=== PATIENT | male | born 1995 | race Caucasian/White ===

== ENCOUNTER 2016-10-11 15:08 | Emergency (ER) | payer OTHER ==
[~2016-10-11] VITALS: Ht 182.9 cm; Wt 111.3 kg
[2016-10-11 15:15] VITALS: BP 140/62
[2016-10-11 16:43] LABS: microscopic required? NO
[2016-10-11 16:56] LABS: UA SPECIFIC GRAVITY 1.025 (1.005-1.035); urine erythrocyte NEGATIVE (NEGATIVE)
== END 2016-10-11 19:18 | disposition left against medical advice (07) ==
LOC: ED 15:08
DX: Z53.21 Procedure and treatment not carried out due to patient leaving prior to being seen by health care provider (principal)

== ENCOUNTER 2017-03-29 21:35 | Emergency (ER) | payer OTHER ==
[~2017-03-29] VITALS: Ht 180.3 cm; Wt 107.5 kg
[2017-03-29 23:54] LABS: CALCIUM 8.9 mg/dL (8.5-10.1); CARBON DIOXIDE 31.2 mmol/L (21-32); CHLORIDE SERUM 103 mmol/L (98-107); CREATININE SERUM 0.8 mg/dL (0.7-1.3); GFR1 > 60 mL/min; GLUCOSE SERUM 98 mg/dL (74-106); POTASSIUM SERUM 3.9 mmol/L (3.5-5.1); SODIUM SERUM 140 mmol/L (136-145)
[2017-03-29 23:58] LABS: AMPHETAMINE QUAL UR NONE DETECTED (NEG <=1000)
[2017-03-30 00:31] VITALS: BP 126/74
== END 2017-03-30 00:31 | disposition home or self-care (01) ==
LOC: ED 21:35
PROVIDERS: Emergency Medicine
DX: R20.2 Paresthesia of skin (principal); I10 Essential (primary) hypertension; F17.200 Nicotine dependence, unspecified, uncomplicated; Z71.6 Tobacco abuse counseling
CPT/HCPCS: 99406

== ENCOUNTER 2018-07-20 23:51 | Emergency (ER) | payer OTHER ==
[~2018-07-20] VITALS: Ht 180.3 cm; Wt 109.3 kg
[2018-07-21 00:16] VITALS: BP 133/82; Ht 180.3 cm; Wt 109.3 kg
== END 2018-07-21 01:41 | disposition home or self-care (01) ==
LOC: ED 23:51
DX: M54.41 Lumbago with sciatica, right side (principal); I10 Essential (primary) hypertension

== ENCOUNTER 2018-09-04 18:36 | Emergency (ER) | payer OTHER | END 2018-09-04 21:19 | disposition home or self-care (01) | LOC: ED 18:36 ==